=== PATIENT | female | born 1990 | race Caucasian/White ===

== ENCOUNTER 2016-02-25 15:07 | Emergency (ER) | payer OTHER ==
[~2016-02-25] VITALS: Ht 157.5 cm; Wt 79.4 kg
[~2016-02-25 15:07] MED LIST: IBUP200T77 PO
[2016-02-25 16:33] LABS: BILIRUBIN,URINE NEGATIVE (NEG); GLUCOSE,URINE NEGATIVE (NEG); NITRITE,URINE NEGATIVE (NEG); PROTEIN,URINE NEGATIVE (NEG-TRACE)
[2016-02-25 16:39] LABS: NEG OBC UR NEG; POS OBC UR POS
[2016-02-25 16:51] LABS: BACTERIA,URINE 0 /HPF (0-FEW); RBC,URINE 0 /HPF (0-2); SQUAMOUS EPITHELIAL CELL,UR MOD /LPF
--- NOTE | 2016-02-25 17:09 | PHYS DOC ---
Past Medical History Past Medical History: Asthma, Constipation Past Surgical History: No Surgical History Alcohol Use: None Drug Use: None Adult General Chief Complaint Chief Complaint: ABDOMINAL PAIN HPI HPI Patient is a 25 year old female who presents with crampy bilateral lower abdominal pain for the past few hours and constipation for the past one month. She has chronic constipation and usually has bowel movements once per week. She sometimes has to use MiraLAX to help with bowel movements. She has not used MiraLAX in the past one month. She denies fever or chills, nausea or vomiting, dysuria, hematuria, vaginal bleeding or discharge, bloody stools, rectal pain. Review of Systems Review of Systems Constitutional: Denies fever or chills [] Eyes: Denies change in visual acuity, redness, or eye pain [] HENT: Denies nasal congestion or sore throat [] Respiratory: Denies cough or shortness of breath [] Cardiovascular: No additional information not addressed in HPI [] GI: Denies nausea, vomiting, bloody stools or diarrhea [] : Denies dysuria or hematuria [] Musculoskeletal: Denies back pain or joint pain [] Integument: Denies rash or skin lesions [] Neurologic: Denies headache, focal weakness or sensory changes [] Endocrine: Denies polyuria or polydipsia [] Current Medications Current Medications Current Medications Medications (Trade) Dose Ordered Sig/Eduard Start Time Stop Time Status Last Admin Dose Admin Ibuprofen (Motrin) 400 mg 1X ONCE 02/25/16 17:15 02/25/16 17:16 DC 02/25/16 17:15 400 MG Allergies Allergies Allergies Coded Allergies Type Severity Reaction Last Updated Verified No Known Drug Allergies 03/27/14 No Physical Exam Physical Exam Constitutional: Well developed, well nourished, no acute distress, non-toxic appearance. [] HENT: Normocephalic, atraumatic, bilateral external ears normal, oropharynx moist, nose normal. [] Eyes: PERRLA, EOMI. [] Neck: Normal range of motion, supple. [] Cardiovascular:Heart rate regular rhythm [] Lungs & Thorax: Bilateral breath sounds clear to auscultation [] Abdomen: Bowel sounds normal, soft, minimal bilateral lower abdominal tenderness , no guarding or rebound. [] Skin: Warm, dry, no erythema, no rash. [] Back: No tenderness, no CVA tenderness. [] Extremities: No tenderness, ROM intact, no edema. [] Neurologic: Alert and oriented X 3, normal motor function, normal sensory function, no focal deficits noted. [] Psychologic: Affect normal, judgement normal, mood normal. [] Current Patient Data Vital Signs Vital Signs Date Time Temp Pulse Resp B/P Pulse Ox O2 Delivery O2 Flow Rate FiO2 02/25/16 17:19 76 18 114/58 99 02/25/16 15:30 98.8 Room Air 98.8 Lab Values Laboratory Tests Test 02/25/16 16:10 Urine Collection Type Unknown Urine Color Yellow Urine Clarity Clear Urine pH 6.0 Urine Specific [place] >=1.030 Urine Protein Negativemg/dL (NEG-TRACE) Urine Glucose (UA) Negativemg/dL (NEG) Urine Ketones (Stick) Negativemg/dL (NEG) Urine Blood Negative (NEG) Urine Nitrite Negative (NEG) Urine Bilirubin Negative (NEG) Urine Urobilinogen Dipstick 1.0mg/dL (0.2 mg/dL) Urine Leukocyte Esterase Moderate (NEG) Urine RBC 0/HPF (0-2) Urine WBC 11-20/HPF (0-4) Urine Squamous Epithelial Cells Mod/LPF Urine Bacteria 0/HPF (0-FEW) Urine Mucus Marked/LPF Urine Test Negative (NEG) Course & Med Decision Making Course & Med Decision Making Pertinent Labs and Imaging studies reviewed. (See chart for details) She appears very well on exam. Urine shows leukocytes, white blood cells, and epithelials; suspect contaminated specimen. Will wait for urine culture for treatment. She does not want a pelvic exam today. Encouraged her to take MiraLAX for likely constipation related abdominal pain. Return precautions given. She understands and agrees with plan. Dragon Disclaimer Dragon Disclaimer This electronic medical record was generated, in whole or in part, using a voice recognition dictation system. Departure Departure Impression: Primary Impression: Abdominal pain Additional Impression: Constipation Disposition: 01 HOME, SELF-CARE Condition: STABLE Referrals: NO PCP (PCP) Patient Instructions: Constipation, Adult, [id number] Additional Instructions: Take MiraLAX to help with constipation. Take Tylenol or ibuprofen as needed for pain. Follow-up with your primary care doctor. Return for any concerns. Problem Qualifiers Primary Impression: Abdominal pain Abdominal location: lower abdomen, unspecified Qualified Code: R10.30 - Lower abdominal pain, unspecified Additional Impression: Constipation Constipation type: unspecified constipation type Qualified Code: K59.00 - Constipation, unspecified Danette DOYLE MD Feb 25, 2016 17:09
[2016-02-25] MEDS ORDERED: IBUPROFEN 400 MG TABLET. PO ONE (17:15)
[2016-02-25 17:19] VITALS: BP 114/58
== END 2016-02-25 17:20 | disposition home or self-care (01) ==
LOC: ER 15:07
DX: K59.00 Constipation, unspecified (principal); J45.909 Unspecified asthma, uncomplicated
CPT/HCPCS: 81001; 81025; 87086; 99284

== ENCOUNTER 2016-06-03 18:43 | Emergency (ER) | payer SELFPAY ==
[~2016-06-03] VITALS: Ht 160 cm; Wt 79.4 kg
[2016-06-03 19:22] VITALS: BP 115/68
[2016-06-03] MEDS ORDERED: AMOX500C PO (20:01)
[2016-06-03] MEDS ORDERED: HYDR-971 PO (20:01)
--- NOTE | 2016-06-03 20:02 | PHYS DOC ---
Past Medical History Past Medical History: No Pertinent History, Asthma, Constipation Past Surgical History: No Surgical History Alcohol Use: None Drug Use: None Adult General Chief Complaint Chief Complaint: MULTIPLE COMPLAINTS HPI HPI Patient is a 25 year old female presents emergency department stating that she is having right upper back dental pain and discomfort for the last few days. She states that she has taken a whole bottle of ibuprofen within the last 2 days. She states that she has tried Anbesol and Orajel with no relief. She also states that she tried a family members tramadol with no relief. She also states that she has a sore throat. Denies fever, chills or nausea vomiting. She does state that she tried to go see a dentist in which her insurance was not supportive at that time. She states they are working to her insurance issue and she will follow up as an is the issue is taking care of. Review of Systems Review of Systems Constitutional: Denies fever or chills [] Eyes: Denies change in visual acuity, redness, or eye pain [] HENT: Denies nasal congestion C/o sore throat and right upper back dental pain Respiratory: Denies cough or shortness of breath [] Cardiovascular: No additional information not addressed in HPI [] GI: Denies abdominal pain, nausea, vomiting, bloody stools or diarrhea [] : Denies dysuria or hematuria [] Musculoskeletal: Denies back pain or joint pain [] Integument: Denies rash or skin lesions [] Neurologic: Denies headache, focal weakness or sensory changes [] Allergies Allergies Allergies Coded Allergies Type Severity Reaction Last Updated Verified No Known Drug Allergies 03/27/14 No Physical Exam Physical Exam Constitutional: Well developed, well nourished, no acute distress, non-toxic appearance. [] HENT: Normocephalic, atraumatic, bilateral external ears normal, oropharynx moist, no oral exudates, nose normal. Lateral tympanic membranes appear to be normal. Throat with erythematous with no exudate noted. No anterior cervical adenopathy noted. Shunt does have a reddened area on the right upper back area of her dental. No drainage or discharge noted. Eyes: PERRLA, EOMI, conjunctiva normal, no discharge. [] Neck: Normal range of motion, no tenderness, supple, no stridor. [] Cardiovascular:Heart rate regular rhythm, no murmur [] Lungs & Thorax: Bilateral breath sounds clear to auscultation [] Skin: Warm, dry, no erythema, no rash. [] Back: No tenderness Extremities: No tenderness, no cyanosis, no clubbing, ROM intact, no edema. [] Neurologic: Alert and oriented X 3, normal motor function, normal sensory function, no focal deficits noted. [] Psychologic: Affect normal, judgement normal, mood normal. [] Current Patient Data Vital Signs Vital Signs Date Time Temp Pulse Resp B/P Pulse Ox O2 Delivery O2 Flow Rate FiO2 06/03/16 19:22 98.6 88 18 100 Room Air 98.6 EKG EKG [] Radiology/Procedures Radiology/Procedures [] Course & Med Decision Making Course & Med Decision Making Pertinent Labs and Imaging studies reviewed. (See chart for details) Spoke with patient regards to using amoxicillin. She'll be provided with hydrocodone for the next 2-3 days to the amoxicillin is working. Patient was also encouraged to use ibuprofen for pain and discomfort. 800 mg every 8 hours. Patient was also encouraged to continue to use warm salt water mouth rinses 4 times a day. Also recommended to continue to brush and floss. Patient agrees with discharge instructions treatment regimens and follow-up recommendations. Patient states that she'll follow up with a dentist as soon as her insurance is [] Dragon Disclaimer Dragon Disclaimer This electronic medical record was generated, in whole or in part, using a voice recognition dictation system. Departure Departure Impression: Primary Impression: Pain, dental Additional Impression: Pharyngitis Disposition: 01 HOME, SELF-CARE Condition: STABLE Referrals: NO PCP (PCP) Patient Instructions: Dental Pain, [id number], Viral and Bacterial Pharyngitis, [id number] Additional Instructions: You've been evaluated for dental pain and sore throat. Medication as prescribed. Hydrocodone will cause drowsiness do not take any be alert and oriented. Continue to use ibuprofen 800 mg every 8 hours with food stop taking few develop upset stomach. Warm salt water gargles 4 times a day. Continue floss and brush your teeth. Follow-up with the dentist as soon as possible. Return back to emergency prior signs symptoms of become worse. Scripts Hydrocodone/Apap 5-325 ([place] 5-325 Tablet)1 Each Tablet1 Tab PO PRN Q6HRS PRN PAIN #8 TAB Prov:JT CHOWDHURY APRN 06/03/16 Amoxicillin 500 Mg Capsule1 Cap PO QID #40 CAP Prov:JT CHOWDHURY APRN 06/03/16 Problem Qualifiers JT CHOWDHURY APRN Jun 03, 2016 20:02
== END 2016-06-03 20:09 | disposition home or self-care (01) ==
LOC: ER 18:43
DX: K08.89 Other specified disorders of teeth and supporting structures (principal); J02.9 Acute pharyngitis, unspecified; J45.909 Unspecified asthma, uncomplicated
CPT/HCPCS: 99283

== ENCOUNTER 2019-08-10 21:40 | Emergency (ER) | payer SELFPAY ==
[~2019-08-10] VITALS: Ht 162.6 cm; Wt 96.8 kg
[~2019-08-10 21:40] MED LIST changes: +AMOX500C PO; +HYDR-3164 PO
--- NOTE | 2019-08-10 22:50 | PHYS DOC ---
Past Medical History Past Medical History: No Pertinent History, Asthma, Constipation Past Surgical History: No Surgical History Smoking Status: Never Smoker Alcohol Use: None Drug Use: None General Adult EDM: Chief Complaint: LACERATION/AVULSION HPI: HPI: Patient is a 28 year old female who presents with report of laceration to her left hand when she cut it with a knife. Patient denies any other injuries. Patient rates pain as mild. [] Review of Systems: Review of Systems: Constitutional: Denies fever or chills. [] Respiratory: Denies cough or shortness of breath. [] Cardiovascular: Denies chest pain or edema. [] Integument: Positive laceration. [] Neurologic: Denies headache, focal weakness or sensory changes. [] Heart Score: Risk Factors: Risk Factors: DM, Current or recent (<one month) smoker, HTN, HLP, family history of CAD, obesity. Risk Scores: Score 0 - 3: 2.5% MACE over next 6 weeks - Discharge Home Score 4 - 6: 20.3% MACE over next 6 weeks - Admit for Clinical Observation Score 7 - 10: 72.7% MACE over next 6 weeks - Early Invasive Strategies Current Medications: Current Medications Medications (Trade) Dose Ordered Sig/Eduard Start Time Stop Time Status Last Admin Dose Admin Lidocaine HCl (Lidocaine 1% 20ml Vial) 20 ml 1X ONCE 08/10/19 22:45 08/10/19 22:46 UNV Allergies: Allergies: Allergies Coded Allergies Type Severity Reaction Last Updated Verified No Known Drug Allergies 03/27/14 No Physical Exam: PE: Constitutional: Well developed, well nourished, no acute distress, non-toxic appearance. [] Cardiovascular: Regular rate and rhythm [] Lungs & Thorax: Bilateral breath sounds clear to auscultation [] Skin: 2 cm laceration is noted to the left hand at the base of the index finger on the lateral aspect of the hand. Laceration is in shape of a flap and extends into subcutaneous tissue. [] EKG: EKG: [] Radiology/Procedures: Radiology/Procedures: [] Course & Med Decision Making: Course & Med Decision Making Pertinent Labs and Imaging studies reviewed. (See chart for details) Patient moved to room upon arrival was evaluated by your medical staff after which wound cleaned and draped in normal sterile fashion and then anesthetized with 1% lidocaine. Laceration was repaired with 5-0 Ethilon suture material with a total of 5 simple interrupted sutures placed. Very good reapproximation of wound margins achieved and patient tolerated procedure well. Dragon Disclaimer: Dragosvaldo Disclaimer: This electronic medical record was generated, in whole or in part, using a voice recognition dictation system. Departure Departure Impression: Primary Impression: Laceration of left hand Qualified Codes: S61.412A - Laceration without foreign body of left hand, initial encounter Disposition: HOME, SELF-CARE Condition: STABLE Referrals: NO PCP (PCP) Patient Instructions: Laceration Care, Adult Justicifation of Admission Dx: Justifications for Admission: Justification of Admission Dx: Comment: (Not applicable) BLANKA CAMPO Jr. DO Aug 10, 2019 22:50
[2019-08-10] MEDS ORDERED: LIDOCAINE 1% Multi-Dose 20 ML VIAL. INJ ONE (23:00)
[2019-08-10] MEDS ORDERED: DIPH,PERTUSS(ACELL),TET VAC/PF 0.5 ML SYRINGE. VAX IM ONE (23:45)
[2019-08-11 00:31] VITALS: BP 135/80
== END 2019-08-11 00:39 | disposition home or self-care (01) ==
LOC: ER 21:40
DX: S61.412A Laceration without foreign body of left hand, initial encounter (principal); J45.909 Unspecified asthma, uncomplicated; W26.0XXA Contact with knife, initial encounter; Y93.89 Activity, other specified; Y92.89 Other specified places as the place of occurrence of the external cause; Y99.8 Other external cause status
CPT/HCPCS: 12001; 90471; 90715; 99283; J3490